=== PATIENT | female | born 1985 | race Caucasian/White ===

== ENCOUNTER 2021-10-18 16:18 | Outpatient (CLI) | payer SELFPAY | END 2021-10-18 23:59 | disposition home or self-care (01) | LOC: LABSPEC 16:21 | PROVIDERS: Visit Provider Physician Assistant | DX: J02.9 Acute pharyngitis, unspecified (principal); R09.81 Nasal congestion; Z20.822 Contact with and (suspected) exposure to COVID-19 | CPT/HCPCS: 87635; 87804; U0003; U0005 ==

== ENCOUNTER 2022-09-25 11:35 | Inpatient (IN) | payer SELFPAY, OTHER ==
[2022-09-25] VITALS (33 sets, daily range): BP systolic 120–174; BP diastolic 68–99; PULSE 69–127; TEMP 36.4–37.1; O2SAT 80–100; BMI 51.2
[2022-09-25] MEDS: Lactated Ringers 1,000 ML 50 ML IV (12:10)
[2022-09-25 12:29] LABS: Absolute Lymphocyte Count 1.89 X10^3/uL (0.83-4.51); Basophil# 0.03 X10^3/uL; Basophil% 0.3 % (0-1); Eosinophil# 0.03 X10^3/uL; Eosinophils% 0.3 % (0-5); Hematocrit 39.6 % (37-47); Hemoglobin 13.3 g/dL (12.0-15.0); Lymphocyte # 1.89 X10^3/ul (0.83-4.51); Lymphocyte % 19.1 % (19-41); Mean Corp Hgb Conc 33.6 g/dL (32-36); Mean Corpuscular Volume 86.3 fL (81-99); Mean Platelet Vol. 10.3 fl (6.2-12.0); Monocyte# 0.87 X10^3/uL; Monocyte% 8.8 % (0-10); NRBC Flagged by Analyzer 0 % (0-5); Neutrophil # 6.99 X10^3/uL (2.7-7.7); Neutrophil % 70.9 % (47-70); Platelet Count 220 K/mm3 (150-450); RBC Distribution Width CV 13.2 % (11.6-14.6); RBC Distribution Width SD 40.9 fl (35.1-43.9); Red Blood Count 4.59 M/mm3 (4.2-5.4); White Blood Count 9.9 K/mm3 (4.4-11.0)
[2022-09-25] MEDS: Oxytocin 15 Units/NS 250ml 15 UNITS/250 ML IV.SOLN 2 UNITS IV (13:21)
--- NOTE | 2022-09-25 16:17 | HP.PCM.OB_ITS ---
HPI - General General Date of Admission: 09/25/22 Chief Complaint: presenting for labor induction HPI Narrative LEXIE URENA, is a 36 F who presents with prodromal labor symptoms since last night. Irregular mild contractions every 8 to 10 minutes that she is rating a 3 out of 10 for pain. There has been no bleeding, no leakage of fluid and movements have continued. Maternal Data Information Final PHUONG: 09/25/22 Gestational age: 40 weeks by last menstrual period and midtrim [facility] Medical History (Updated 09/25/22 @ 16:[address] Taisha Galloway MD) Anemia affecting Home Medications azithromycin 250 mg tablet (Zithromax Z-Florencio) See Rx Instructions PO .COMPLEX #6 tabs 10/18/21 [Rx Last Taken Unknown] fluticasone propionate 50 mcg/actuation nasal spray,suspension (Allergy Relief (fluticasone)) 1 spray intranasal DAILY #16 grams 10/18/21 [Rx Last Taken Unknown] sertraline 25 mg tablet (Zoloft) 25 mg PO DAILY 10/18/21 [History Last Taken Unknown] Allergy/AdvReac Type Severity Reaction Status Date / Time No Known Allergies Allergy Verified 10/18/21 09:25 Family History (Updated 10/18/21 @ 09:27 by Stefania Guardado) Mother Multiple sclerosis Father Multiple sclerosis Surgical History Hx of appendectomy Hx of tonsillectomy Social History (Updated 10/18/21 @ 09:27 by Stefania Guardado) Smoking Status: Never smoker Addt'l Information Additional Findings: She is and does not use tobacco or alcohol History 8 Elective abortions 0 Hx Para 5 Spontaneous abortions 2 Hx # Term Pregnancies 5 Ectopic pregnancies 0 Hx # Pregnancies 0 Multiple births 0 # of living children 5 Addt'l History: 1 past delivery complicated by hemorrhage Current delivery is complicated by polyhydramnios. 1 hour Glucola was normal at 121 and weight gain is 13 pounds. Patient has been compliant with visits since the first trimester. Current BMI is 51.8. Group B beta strep is negative. NST FHR Rate Baby A Variability:: Moderate Accelerations:: 15 x 15 Decelerations:: None NST Reactive:: Yes FHR Category:: Category I Uterine Activity:: Contractions initially every 7 to 8 minutes. Mild to palpation. ROS ROS Narrative Patient has been completely well up till time of presentation Review of Systems ROS Unobtainable: Denies due to encephalopathy, due to endotracheal tube, due to mental condition, due to mental status or other Constitutional Constitutional: Reports systems reviewed and no addt'l complaints, except as documented Vital Signs Vital Signs Vital Signs: 09/25/22 11:54 09/25/22 11:54 09/25/22 12:40 Temperature Temperature Source Temporal Pulse Rate 117 H Blood Pressure 130/82 H BP Systolic 130 BP Diastolic 82 Pulse Ox 09/25/22 12:40 09/25/22 13:25 09/25/22 13:25 Temperature 98.7 F Temperature Source Pulse Rate 106 H Blood Pressure 121/83 H BP Systolic 121 BP Diastolic 83 Pulse Ox 09/25/22 13:58 09/25/22 13:58 09/25/22 15:03 Temperature Temperature Source Pulse Rate 101 H 112 H Blood Pressure 121/88 H BP Systolic 121 BP Diastolic 88 Pulse Ox 09/25/22 15:03 09/25/22 15:08 09/25/22 15:08 Temperature Temperature Source Pulse Rate 111 H Blood Pressure 127/85 H BP Systolic 127 BP Diastolic 85 Pulse Ox 97 Weight Weight: 280 lb Body Mass Index (BMI) 51.2 Physical Exam Narrative Younger obese white female Const alert, oriented x3 and no apparent distress General Appearance: cooperative and comfortable HEENT normocephalic Neck General: normal visual inspection Resp normal respiratory effort, normal air movement and clear to auscultation bilaterally Cardio regular rate and regular rhythm Cardio Narrative: Mild tachycardia Narrative: Pelvic exam was 3 cm, stretchy, but thick with a high ballotable head presenting. Skin Lesions: no lesions Neuro oriented x3 Psych mental status grossly normal Labs Labs Labs: Blood Type O POSITIVE Antibody Screen NEGATIVE Hct 39.6 % (37-47) Hgb 13.3 g/dL (12.0-15.0) Assessment & Plan (1) 40 weeks gestation of : COMMENT: Patient in early phase of labor latent phase, and given polyhydramnios and increased risk of cord prolapse with membranes ruptured at home the patient was encouraged to come in and have labor augmented as necessary in anticipation of spontaneous vaginal delivery. The patient understands that in any case when membranes ruptured there may be a prolapsed cord but presence in the hospital allows for this to be addressed quickly. (2) Polyhydramnios: (3) Grand multiparity: COMMENT: We will augment labor gently.
--- NOTE | 2022-09-25 16:39 | PCM.PN.BLA ---
Progress Note Patient was seen at about 4:15 PM and is sitting on the birthing ball looking fairly comfortable. States she can feel the more frequent contractions though they are not particularly painful. heart rate is category 1. Patient was seen again approximately 7:15 PM and states she is getting uncomfortable and would like her epidural. Contractions are every 2-3 minutes on 8 milliunits/min of Pitocin.. Apparently spontaneous rupture of membranes occurred about 6:20 PM and fluid has begun to leak out slowly. Vaginal exam unclear because the presenting part was very high and the RN could not reach it. She is currently receiving a fluid bolus in anticipation of epidural placement. Will reevaluate after patient is comfortable.
[2022-09-25] MEDS: LACTATED RINGERS 500 ML 999 ML IV (18:44)
[2022-09-25] MEDS: fentaNYL-bupivacaine (epidural) 100 ML BAG EPIDURAL (20:42)
[2022-09-25] MEDS: Lactated Ringers 1,000 ML 200 ML IV (22:40)
[2022-09-26] VITALS (64 sets, daily range): BP systolic 115–145; BP diastolic 62–91; PULSE 78–129; RESP 16; TEMP 36–36.7; O2SAT 90–100
[2022-09-26] MEDS: LACTATED RINGERS 500 ML 999 ML IV (00:31)
--- NOTE | 2022-09-26 00:45 | PN_ITS ---
Progress Note Walked in about 1230 to find patient sitting upright post emesis. RN's just finished VE per theri report and cervix C with bulging BOW only palpable. Noted difficulty in monitoring FR externally, (FHR sounded irregular ranging between 60s and 100.) and assisted to locate the same, using bedside ultrasound to confirm. Meantime 500ml fluid bolus and oxygen started. Pitocin discontinued. VE per me 8 cm with high BOW and floating head to right still present. FHR in 150s with good variability with continuous monitoring now successful externally. one late decel noted, and ctxs previoiusly q 2-3 minutes, noted to be spacing out. Will follow closely and consider restarting Pitocin after 20' of reassuring tracing. 0049 on 09/26/22 [facility]examined [facility] and head remains high, ballotteable. VE 8/80%/-3. Bulging BOW still present, though perineum is quite wet. FHR remains category I. Ctxs q 3-4' on 4 miu/min of Pitocin. Patient extremely numb from epidural with very little LE power. Cannot feel when contractions are occurring. Discussed lowering the epidural infusion rate with patient, and increasing Pitocin by 1 miu/min each 30' to try to acheive q 2-3 minute contractions. Couple agreed. Discussed with nurses to call me promptly for gross ROM. 0253 on 09/26/22
[2022-09-26] MEDS: fentaNYL-bupivacaine (epidural) 100 ML BAG EPIDURAL (01:24)
[2022-09-26] MEDS: Lactated Ringers 1,000 ML 200 ML IV (04:34)
--- NOTE | 2022-09-26 05:40 | PCM.PN.BLA ---
Progress Note Patient seen and long discussion held regarding prolonged active phase with head apparently still floating. I told her she was already at increased risk for hemorrhage because of her previous history of the same and macrosomia with polyhydramnios but a prolonged active phase on Pitocin would not help and could make that even worse. Our options would be to attempt rupturing membranes with fundal pressure to see if the head would descend and cord prolapse could be avoided, or the other alternative would be to proceed to section for failure to progress given 4 hours on Pitocin with no cervical change. The main difference would be one being a much more controlled situation than the other. On vaginal exam however she is now 9 cm and 100% effaced with the bulging bag at -2 station. All attempts to palpate the head gently around the edges of this bulging bag were unsuccessful suggesting the head remains high. I advised them to think about her options as we continue the Pitocin and I will return in an hour to reevaluate and attempt AROM if they are interested. They were given an opportunity to ask questions and to have them answered. VE was done at 0530.
[2022-09-26] MEDS: miSOPROStol 200 MCG Tablet 1000 MCG RC (07:15)
[2022-09-26] MEDS: Oxytocin 15 Units/NS 250ml 15 UNITS/250 ML IV.SOLN 83 UNITS IV (07:30)
--- NOTE | 2022-09-26 07:37 | PCM.NY.DEL ---
Delivery Attendance Service Date: 09/26/22 Course of Delivery Was resuscitation required: No Physical Exam Apgars/Vital Signs/Weight: Weight: 280 lb Cord Vessel Description: 3 Vessels Neurological: Normal suck, rooting, and Mick reflexes. Skin: Normal color General Weight: 280 lb Abdomen 3 Vessels
--- NOTE | 2022-09-26 07:41 | PCM.PN.BLA ---
Progress Note Delivery note as planned, posterior AROM was carried out with fundal pressure and slow eggress of fluifd allowed till head settled over my hand in about 15 minutes. the BOW remained intact. VE wsa a rim when carried out. Patient was encouraged to push with contractions, and helped bring the head down. Initial fluid 200ml was thick creamy - chylous looking so cultrues were sent. Cervix was complete and head at 0 station by time fundal pressure was released, and patien tpushed over one more contraction for of vigorosus male w Apgars 8 & 9. 1st deg lacerations rt periurethral - 2 cm repaired with 5 ml 1% plain lidocaine and 2 fig of 8 sutures of #3-0 Vircyl. < 1 cm [facility] at [facility] was not bleeding and no repaired. 3 rd stage actively managed for complete placenta with 3 vsl cord and no anomaly of men=mbranes noted. thick healthy cord. EBL 400 ml. 1000 mcg cytotec placed prohylactically. Stayed for over 30' post delivery with no abnormal bleeding noted. Patient tolerated delivery extremely well.
--- NOTE | 2022-09-26 13:39 | NURSING ---
This economics instructor reviewed the documentation completed by Bonnie Petit student nurse and it is complete.
--- NOTE | 2022-09-26 14:05 | EX.PCM.OBRPT ---
Vaginal Delivery Maternal Presentation Maternal Presentation: Medically Indicated Induction Maternal Presentation: Delivery note Patient brought in for labor induction, had Pitocin for hours with slow progress, but held off AROM due to concern with polyhydramnios. Eventually, as planned, posterior AROM was carried out with fundal pressure and slow eggress of fluifd allowed till head settled over my hand in about 15 minutes. the BOW remained intact. VE wsa a rim when carried out. Patient was encouraged to push with contractions, and helped bring the head down. Initial fluid 200ml was thick creamy - chylous looking so cultrues were sent. Cervix was complete and head at 0 station by time fundal pressure was released, and patien tpushed over one more contraction for of vigorosus male? w Apgars 8 & 9. 1st deg lacerations rt periurethral - 2 cm repaired with 5 ml 1% plain lidocaine and 2 fig of 8 sutures of #3-0 Vircyl. < 1 cm similar at [facility] was not bleeding and no repaired. ?? 3 rd stage actively managed for complete placenta with 3 vsl cord and no anomaly of men=mbranes noted. thick healthy cord. EBL 400 ml. 1000 mcg cytotec placed prohylactically. Stayed for over 30' post delivery with no abnormal bleeding noted. Patient tolerated delivery extremely well. Type of Induction: Pitocin Medical Reason for Induction: Maternal Medical Condition: list: (polyhydramnios, Obesity, elderly multigravida) Operative Information Date of Procedure: 09/26/22 Pre-Operative Diagnosis: see diagnosis Post-Operative Diagnosis: Same plus macrosomia Surgery / Procedure Performed: Spontaneous Vaginal Delivery Type of Anesthesia: Epidural Estimated Blood Loss: 400 ml Post Vaginal Delivery Medications Given After Delivery: IV Pitocin Laceration: Periurethral Extnsion/lac Complication Complications: None
[2022-09-26] MEDS: Acetaminophen 500 MG Tablet 1000 MG PO (20:07)
[2022-09-26] MEDS: 0.9% Saline Lock 10 ML Syringe IV (22:36)
[2022-09-26] MEDS: Sertraline 50 MG Tablet PO (22:40)
[2022-09-27] VITALS: BP 112/70; PULSE 86; RESP 16; TEMP 36.1; O2SAT 97
[2022-09-27 00:02] VITALS: BP 112/70; PULSE 91
[2022-09-27 03:19] VITALS: BP 112/62; PULSE 83; PULSE 86; O2SAT 93
[2022-09-27 03:20] VITALS: BP 112/62; PULSE 89; RESP 18; TEMP 36.1; O2SAT 95
--- NOTE | 2022-09-27 07:31 | PN.OBGYN_ITS ---
Subjective Subjective Not having any pain. Has taken 1 Tylenol. Baby is feeding well but appears to have a tongue-tie they are planning to address on their way home. Lochia is small. Objective Data Objective Data Looks well up and about independently in the room Vital Signs: Vital Signs Temp Pulse Resp BP Pulse Ox O2 Del Method 97 F L 89 18 112/62 95 Room Air 09/27/22 03:20 09/27/22 03:20 09/27/22 03:20 09/27/22 03:20 09/27/22 03:20 09/27/22 03:20 Oxygen Delivery Method Room Air Weight: 280 lb Body Mass Index (BMI) 51.2 Intake & Output: Intake and Output for Last 24 Hours 09/25/22 09/26/22 09/27/22 23:59 23:59 23:59 Intake Total 1561.70 / 1561.70 2434.97 / 2434.97 Output Total 2200 / 2200 Balance 1561.70 / 1561.70 234.97 / 234.97 Lab / Micro Data Result Diagrams: 09/25/22 12:10 Micro: Microbiology 09/26/22 06:56 Discharge - Aerobic & Anaerobic Swabs Gram Stain - Final ROS ROS Narrative She has no complaints Physical Exam Const alert, oriented x3 and well nourished Resp normal respiratory effort and clear to auscultation bilaterally Cardio Rate: regular rate Rhythm: regular rhythm GI GI Narrative: Diminished nontender with uterus firm at umbilicus -1 Palpation: soft Back/Spine Back/Spine Narrative: no costovertebral angle tenderness Extremity no calf tenderness and no pedal edema Assessment & Plan (1) Grand multiparity: COMMENT: We will augment labor gently. (2) Polyhydramnios: (3) 40 weeks gestation of : COMMENT: Patient in early phase of labor latent phase, and given poly hydramnios and increased risk of cord prolapse with membranes ruptured at home the patient was encouraged to come in and have labor augmented as necessary in anticipation of spontaneous vaginal delivery. The patient understands that in any case when membranes ruptured there may be a prolapsed cord but presence in the hospital allows for this to be addressed quickly. (4) state: PLAN: Plan day #1 after spontaneous vaginal delivery. plan is to discharge home today. Patient has Tylenol at home and no need for pain meds at this time. She will continue her Zoloft and be seen in the office in 2 weeks.
--- NOTE | 2022-09-27 07:39 | DS.PCM_ITS ---
Providers Date of Admission: 09/25/22 Reason For Visit: LABOR/DELIVERY/VAGINAL DELIVERY Diagnosis Discharge Diagnosis (1) Grand multiparity: Status: Acute Code(s): Z64.1 - Problems related to multiparity (2) Polyhydramnios: Status: Acute Code(s): O40.9XX0 - Polyhydramnios, unspecified trimester, not applicable or unspecified (3) 40 weeks gestation of : Status: Acute Code(s): Z3A.40 - 40 weeks gestation of (4) state: Status: Acute Code(s): Z39.2 - Encounter for routine follow-up Plan day #1 after spontaneous vaginal delivery. plan is to discharge home today. Patient has Tylenol at home and no need for pain meds at this time. She will continue her Zoloft and be seen in the office in 2 weeks. Medications at Discharge Home Medications sertraline 25 mg tablet (Zoloft) 25 mg PO DAILY Check with primary doctor 10/18/21 fluticasone propionate 50 mcg/actuation nasal spray,suspension (Allergy Relief (fluticasone)) 1 spray intranasal DAILY Check with primary doctor 09/25/22 [id number] 1 mg tablet 1 tab PO DAILY Check with primary doctor 09/25/22 Weight / BMI Weight Weight: 280 lb Body Mass Index (BMI) 51.2 ABG / Lab / Microbiology Data Result Diagrams: 09/25/22 12:10 Microbiology: Microbiology 09/26/22 06:56 Discharge - Aerobic & Anaerobic Swabs Gram Stain - Final Meaningful Use Info Meaningful Use Diagnoses (Choose all that apply): None applicable Discharge Plan Admission Admit Date/Time: 09/25/22 11:35 Primary Reason for Your Visit: delivery Attending Provider: Taisha Galloway Instructions Forms: Information, Information Patient Instructions: After a Vaginal Discharge Orders/Prescriptions Prescriptions: No Action sertraline [Zoloft] 25 mg tablet 25 mg PO DAILY 1 mg Tablet 1 tab PO DAILY fluticasone propionate [Allergy Relief (fluticasone)] 50 mcg/actuation spray, suspension 1 spray intranasal DAILY Rx Instructions: administer into each nostril Referrals / Follow Up: Taisha Galloway MD [Med Staff - Courtesy Staff] - Disposition Disposition (needs filled in before D/C Order can be placed): Home, Self Care
[2022-09-27 08:24] VITALS: BP 119/79; PULSE 87
[2022-09-27 08:30] VITALS: BP 119/79; PULSE 87; RESP 16; TEMP 36.4
[2022-09-27] MEDS: Prenatal Vits Tablet 1 TABLET PO (11:01)
--- NOTE | 2022-09-27 11:45 | CASEMGMT ---
Social Work Assessment Labor and Delivery Unit Date of Referral: 09/26/2022 Time of Referral: 08:31 Referred By: Dr. Taisha Galloway Date of Intervention: 09/27/2022 Time of Intervention: 11:45 Reason for Referral: Mother of baby (MOB) with mental health history. History obtained from: MOB, Father of baby (FOB), medical chart, nursing staff. Household composition: MOB and FOB now have 6 children together ranging in age from to 15 years old. All family members live together in a private home. Patient's parent/guardian status: MOB and FOB have been for 16 years. was not planned but accepted. Medical History: MOB with vaginal delivery at 40 weeks. MOB with appropriate care visits. This infant (Hernan Lu) was born on 09/26/2023 with apgars of 8 and 9 at 1min and 5min and birthweight of 4110g. Infant to follow with Dr. Garcia in the community with [facility]. MOB reports plan to breastfeed and that is going well outside of infant being tongue tied. to have appointment with ENT today at 13:00 to have this addressed. Educational Status: MOB denies issues/concerns with comprehension or understanding. Financial Status: MOB denies financial concerns. Supplies: MOB reports to have needed infant supplies in the home including a car seat and crib. Childcare/Caregiver(s): MOB is a homemaker and plans to be main caregiver for children in the home. Transportation: MOB denies transportation concerns. Programs/Agencies Involved: Denies outside agency involvement. Children Services/Legal Issues: Denies any legal concerns or history of children services. 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 MOB reports to have hemorrhaged after second delivery and to believe this is what cause ?my depression? per MOB. MOB reports to have been started on Zoloft after PPD and to have been on Zoloft since. MOB denies any history of suicidal thoughts, plans, intents. This manager social able to engage in conversation with MOB about signs and symptoms of PPD/anxiety. MOB reports to have family and social supports. Maternal and Drug Screens: No tox screens obtained. MOB denies substance abuse/use. PHQ9: Did not trigger. Family/Social Stressors: MOB denies family or social stressors. Support Systems: MOB reports to have multiple family members for support. FOB also works at home and is able to be around for support and to help out with the kids. Depression and Anxiety/Shaken Baby/Safe Sleeping: This manager social provided patient with information on depression and anxiety, shaken baby, safe sleeping and [facility] general resources. MOB provided appropriate responses to prompts for shaken baby and safe sleeping. ASSESSMENT: This manager social met with MOB and FOB in room. Introduced self and manager social role. MOB agreeable to speak with this manager social and provided verbal permission for this manager social to speak openly with FOB present. resting in MOB?s arms. MOB reports to have a connection with and denies concerns on returning to home. MOB presented with a pleasant and engaged affect. PLAN: Infant to discharge to home with FOB and MOB. No other services requested or indicated. Preeti MCKAY, JOVANNAS
--- NOTE | 2022-09-27 11:45 | CASEMGMT ---
Social Work Assessment Labor and Delivery Unit Date of Referral: 09/26/2022 Time of Referral: 08:31 Referred By: Dr. Taisha Galloway Date of Intervention: 09/27/2022 Time of Intervention: 11:45 Reason for Referral: Mother of baby (MOB) with mental health history. History obtained from: MOB, Father of baby (FOB), medical chart, nursing staff. Household composition: MOB and FOB now have 6 children together ranging in age from to 15 years old. All family members live together in a private home. Patient's parent/guardian status: MOB and FOB have been for 16 years. was not planned but accepted. Medical History: MOB with vaginal delivery at 40 weeks. MOB with appropriate care visits. This infant (Hernan Lu) was born on 09/26/2023 with apgars of 8 and 9 at 1min and 5min and birthweight of 4110g. Infant to follow with Dr. Garcia in the community with [facility]. MOB reports plan to breastfeed and that is going well outside of infant being tongue tied. to have appointment with ENT today at 13:00 to have this addressed. Educational Status: MOB denies issues/concerns with comprehension or understanding. Financial Status: MOB denies financial concerns. Supplies: MOB reports to have needed infant supplies in the home including a car seat and crib. Childcare/Caregiver(s): MOB is a homemaker and plans to be main caregiver for children in the home. Transportation: MOB denies transportation concerns. Programs/Agencies Involved: Denies outside agency involvement. Children Services/Legal Issues: Denies any legal concerns or history of children services. 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 MOB reports to have hemorrhaged after second delivery and to believe this is what cause ?my depression? per MOB. MOB reports to have been started on Zoloft after PPD and to have been on Zoloft since. MOB denies any history of suicidal thoughts, plans, intents. This social services director able to engage in conversation with MOB about signs and symptoms of PPD/anxiety. MOB reports to have family and social supports. Maternal and Drug Screens: No tox screens obtained. MOB denies substance abuse/use. PHQ9: Did not trigger. Family/Social Stressors: MOB denies family or social stressors. Support Systems: MOB reports to have multiple family members for support. FOB also works at home and is able to be around for support and to help out with the kids. Depression and Anxiety/Shaken Baby/Safe Sleeping: This social services director provided patient with information on depression and anxiety, shaken baby, safe sleeping and [facility] general resources. MOB provided appropriate responses to prompts for shaken baby and safe sleeping. ASSESSMENT: This social services director met with MOB and FOB in room. Introduced self and social services director role. MOB agreeable to speak with this social services director and provided verbal permission for this social services director to speak openly with FOB present. resting in MOB?s arms. MOB reports to have a connection with and denies concerns on returning to home. MOB presented with a pleasant and engaged affect. PLAN: Infant to discharge to home with FOB and MOB. No other services requested or indicated. Preeti MCKAY, JOVANNAS
== END 2022-09-27 12:45 | disposition home or self-care (01) | DRG 807 ==
PROVIDERS: Admitting Provider Obstetrics & Gynecology Gynecology; Visit Provider Obstetrics & Gynecology Gynecology
DX: O40.3XX0 Polyhydramnios, third trimester, not applicable or unspecified (principal); Z37.0 Single live birth; E66.8 Other obesity; O26.23 Pregnancy care for patient with recurrent pregnancy loss, third trimester; O48.0 Post-term pregnancy; Z79.899 Other long term (current) drug therapy; Z3A.40 40 weeks gestation of pregnancy; O99.214 Obesity complicating childbirth; Z64.1 Problems related to multiparity
CPT/HCPCS: 59025; 59050; 76815; 85025; 86850; 86900; 86901; 87070; 87075; 87205; 99221; J7120; A4216; G0378